=== PATIENT | female | born 1940 | race Caucasian/White ===

== ENCOUNTER 2018-09-22 13:21 | Emergency (ER) | payer MEDICARE ==
[2018-09-22] MEDS ORDERED: NS 0.9% 1000 ML** 1,000 ML IV ONE (13:32)
--- NOTE | 2018-09-22 13:38 | ED ---
GI/ HPI - HPI Summary HPI Summary: Patient is a 78 y/o F presenting to ED with complaints of diarrhea for the past month. She notes that she came to ED four weeks ago and was found to have PNA and a dental infection, was prescribed antibiotics. Patient has been having regular episodes of diarrhea since. She had a negative C.diff test three weeks ago. When diarrhea persisted, PCP prescribed flagyl and rifaximin, with last dosage being two days ago. She was prescribed loperamide two days ago by PCP, patient had minimal improvement with this medication. Diarrhea is described as watery, she notes that her diarrhea was initially colored bright orange but has recently been more brown colored. She denies abdominal pain, N/V but reports intermittent fever and decrease PO intake. On triage, pain is denied, nothing is noted to aggravate/alleviate Sx. Home medications and allergies are reviewed. - History of Current Complaint Time Seen by Provider: 09/22/18 13:25 Stated Complaint: GENERAL ILLNESS PER EMS Hx Obtained From: Patient Onset/Duration: Started Weeks Ago - a month ago, Still Present Timing: Constant, Lasting Weeks - a month ago Current Severity: None - pain denied Associated Signs and Symptoms: Positive: Diarrhea, Fever, Change in Appetite - decreased PO intake, Other: - decreased PO intake. Negative: Nausea, Vomiting, Abdominal Pain Aggravating Factor(s): Nothing Alleviating Factor(s): Nothing - Additional Pertinent History Primary Care Physician: [id number] - Allergy/Home Medications Allergies/Adverse Reactions: Allergies Allergy/AdvReac Type Severity Reaction Status Date / Time shellfish derived Allergy GI Upset Verified 09/22/18 13:31 Sulfa (Sulfonamide Allergy Unknown Verified 09/22/18 13:31 Antibiotics) Reaction Details chocolate flavor AdvReac Nausea Verified 09/22/18 13:31 Home Medications: Home Medications Loperamide CAP* [Imodium CAP*] 2 mg PO .UP TO TID PRN 09/22/18 [History Confirmed 09/22/18] PMH/Surg Hx/FS Hx/Imm Hx Endocrine/Hematology History: Reports: Hx Anemia Denies: Hx Diabetes Cardiovascular History: Reports: Hx Congestive Heart Failure - R/T CHEMOTHERAPY HEART FUNCTION, NO PROBLEMS NOW, Hx Hypertension - ON MEDS, CONTROLLED Denies: Hx Pacemaker/ICD Respiratory History: Denies: Hx Asthma, Hx Chronic Obstructive Pulmonary Disease (COPD) GI History: Reports: Hx Gall Bladder Disease - GALL BLADDER REMOVED, Hx Gastroesophageal Reflux Disease - 1990s:SURGERY, NO Sx SINCE, Hx Hiatal Hernia, Other GI Disorders - FIELDS'S ESOPHAGUS History: Reports: Other Problems/Disorders - RADIATION CYSTITIS R/T UTERINE CANCER Denies: Hx Renal Disease Musculoskeletal History: Reports: Hx Arthritis - OSTEO, Hx Back Problems, Hx Orthopedic Injury, Hx Osteoporosis Sensory History: Reports: Hx Cataracts, Hx Contacts or Glasses, Hx Hearing Problem Denies: Hx Hearing Aid Opthamlomology History: Reports: Hx Cataracts, Hx Contacts or Glasses Neurological History: Reports: Hx Headaches, Hx Nerve Disease - 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EE REPLAC[place]. OTHER KNEE SURGERYS BEFORE REPLACEMENT. HOLDER NEUROMA SURGERIES RT AND LT FOOT, [place] [facility] [place]. [place] [facility] [place] [facility] [place] RIGHT BREAST LUMPECTOMY. JUN 2015 LEFT KNEE REPLACEMENT Hx Anesthesia Reactions: Yes - N/V - Family History Known Family History: Positive: Other - positive: glaucoma - Social History Alcohol Use: Weekly Alcohol Amount: 5 drinks Substance Use Type: Reports: None Smoking Status (MU): Never Smoked Tobacco Have You Smoked in the Last Year: No Review of Systems Positive: Fever - reported intermittent Gastrointestinal: Other - POSITIVE - DECREASED PO INTAKE Positive: Diarrhea. Negative: Abdominal Pain, Vomiting, Nausea All Other Systems Reviewed And Are Negative: Yes Physical Exam - Summary Physical Exam Summary: VITAL SIGNS: Reviewed. GENERAL: Patient is a well-developed and nourished female who is lying comfortable in the stretcher. Patient is not in any acute respiratory distress. HEAD AND FACE: No signs of trauma. No ecchymosis, hematomas or skull depressions. No sinus tenderness. EYES: PERRLA, EOMI x 2, No injected conjunctiva, no nystagmus. EARS: Hearing grossly intact. Ear canals and tympanic membranes are within normal limits. MOUTH: Oropharynx within normal limits. NECK: Supple, trachea is midline, no adenopathy, no JVD, no carotid bruit, no c- spine tenderness, neck with full ROM. CHEST: Symmetric, no tenderness at palpation LUNGS: Clear to auscultation bilaterally. No wheezing or crackles. CVS: Regular rate and rhythm, S1 and S2 present, no murmurs or gallops appreciated. ABDOMEN: Soft, non-tender. No signs of distention. No rebound no guarding, and no masses palpated. Bowel sounds are normal. EXTREMITIES: FROM in all major joints, no edema, no cyanosis or clubbing. NEURO: Alert and oriented x 3. No acute neurological deficits. Speech is normal and follows commands. SKIN: Dry and warm Triage Information Reviewed: Yes Vital Signs On Initial Exam: Initial Vitals Temp Pulse Resp BP Pulse Ox 98.0 F 88 16 182/98 96 09/22/18 13:22 09/22/18 13:22 09/22/18 13:22 09/22/18 13:22 09/22/18 13:22 Vital Signs Reviewed: Yes Diagnostics - Laboratory Result Diagrams: 09/22/18 13:59 09/22/18 13:59 Lab Statement: Any lab studies that have been ordered have been reviewed, and results considered in the medical decision making process. - Radiology abdomen x-ray Radiology Interpretation Completed By: Radiologist Summary of Radiographic Findings: IMPRESSION: NONSPECIFIC BOWEL GAS PATTERN. LARGE AMOUNT OF STOOL THROUGHOUT THE COLON. THIS REPORT WAS REVIEWED BY DR. YEBOAH. Re-Evaluation - Re-Evaluation First Eval Re-Evaluation Time: 15:37 Change: Improved Comment: The patient reports that after hydration she is feeling better therefore she will be discharged home with follow-up with her GI doctor. Patient has upcoming appointment with a GI doctor and she was recommended to keep it. Since the patient is feeling better she will be discharged home with follow-up with PCP and GI. I discussed all the findings and test results with the patient. Patient was instructed to return to the emergency room immediately if any of the symptoms return worsens. Plan of care was discussed with the patient and understands and agrees. All questions were answered at patient satisfaction. There were no further complaints or concerns. Lung exam before discharge: CTA B/L. Good air exchange. No wheezing or crackles heard. CVS: S1 and S2 present. No murmurs appreciated. Patient is alert and oriented x 3. Patient is hemodynamically stable. Patient will be discharged home with follow up PCP in the next 2-3 days GIGU Course/Dx - Course Assessment/Plan: This patient is a 78-year-old female who presents to the emergency room with a chief complaint of having diarrhea for more than a month. The patient has been taking antibiotics and Sx are just getting worse. She denies any abdominal pain, she reports occasionally fever. Blood work without any significant abnormality except potassium level of 3.4. Patient was given potassium chloride, urinalysis is negative for UTI. X-ray of the abdomen shows no acute pathology. In the ED course the patient was given IV fluids. The patient was assessed for couple hours and there was no diarrhea or nausea or vomiting. The patient reports that after hydration she is feeling better therefore she will be discharged home with follow-up with her GI doctor. Patient has upcoming appointment with a GI doctor and she was recommended to keep it. Since the patient is feeling better she will be discharged home with follow-up with PCP and GI. I discussed all the findings and test results with the patient. Patient was instructed to return to the emergency room immediately if any of the symptoms return worsens. Plan of care was discussed with the patient and understands and agrees. All questions were answered at patient satisfaction. There were no further complaints or concerns. Lung exam before discharge: CTA B/L. Good air exchange. No wheezing or crackles heard. CVS: S1 and S2 present. No murmurs appreciated. Patient is alert and oriented x 3. Patient is hemodynamically stable. Patient will be discharged home with follow up PCP in the next 2-3 days - Diagnoses Provider Diagnoses: Diarrhea Discharge - Sign-Out/Discharge Documenting (check all that apply): Patient Departure - DISCHARGE Patient Received Moderate/Deep Sedation with Procedure: No - Discharge Plan Condition: Stable Disposition: HOME Patient Education Materials: Chronic Diarrhea (ED) Referrals: Yusra Stringer MD [Primary Care Provider] - 3 Days Additional Instructions: RETURN TO ED FOR ANY NEW OR WORSENING SYMPTOMS. FOLLOW UP WITH YOUR PRIMARY CARE PHYSICIAN WITHIN THREE DAYS - Billing Disposition and Condition Condition: STABLE Disposition: Home - Attestation Statements Document Initiated by Scribe: Yes Documenting Scribe: JAKUB ARDON Provider For Whom Temoe is Documenting (Include Credential): ROBER YEBOAH MD Scribe Attestation: I, JAKUB ARDON, scribed for ROBER YEBOAH MD on 09/22/18 at 2113. Scribe Documentation Reviewed: Yes Provider Attestation: The documentation as recorded by the scribe, JAKUB ARDON accurately reflects the service I personally performed and the decisions made by me, ROBER YEBOAH MD Status of Scribe Document: Viewed
[2018-09-22 14:08] LABS: ABS Basophils 0 10^3/ul (0-0.2); ABS Eosinophils 0.1 10^3/ul (0-0.6); ABS Lymphocytes 0.6 10^3/ul (1.0-4.8); ABS Monocytes 0.4 10^3/ul (0-0.8); ABS Neutrophils 3.3 10^3/ul (1.5-7.7); ABS Nucleated RBC 0 10^3/ul; Eosinophil % 1.2 %; Hematocrit 36 % (33-41); Lymphocyte % 12.7 %; Mean Corpuscular HGB Conc 33 g/dL (31-36); Mean Corpuscular Hemoglobin 32 pg (27-31); Mean Corpuscular Volume 97 fL (80-97); Mean Platelet Volume 7.5 fL (7.4-10.4); Nucleated Red Blood Cells % 0.1; Platelet Count 215 10^3/uL (150-450); Red Blood Count 3.73 10^6 /uL (3.70-4.87); Red Cell Distribution Width 15 % (10.5-15); White Blood Count 4.3 10^3/uL (3.5-10.8)
[2018-09-22 14:23] LABS: ALT 12 U/L (7-52); AST 20 U/L (13-39); Albumin 3.8 g/dL (3.2-5.2); Albumin/Globulin Ratio 1.7 (1-3); Alkaline Phosphatase 34 U/L (34-104); Anion Gap 8 mmol/L (2-11); BUN/Creatinine Ratio 14.5 (8-20); Blood Urea Nitrogen 9 mg/dL (6-24); C Reactive Protein < 1.00 mg/L (<8.01); CO2 Carbon Dioxide 27 mmol/L (22-32); Calcium 9.3 mg/dL (8.6-10.3); Chloride 109 mmol/L (101-111); EGFR African American 112.9 (>60); EGFR Non-African American 93.3 (>60); Globulin 2.3 g/dL (2-4); Glucose 99 mg/dL (70-100); Potassium 3.4 mmol/L (3.5-5.0); Sodium 144 mmol/L (135-145); Total Protein 6.1 g/dL (6.4-8.9)
[2018-09-22 14:27] LABS: Urine Appearance Clear; Urine Bacteria Absent (Absent); Urine Bilirubin Negative (Negative); Urine Blood 2+ (Negative); Urine Color Straw; Urine Glucose Negative (Negative); Urine Ketones Negative (Negative); Urine Nitrite Negative (Negative); Urine Protein Negative (Negative); Urine Red Blood Cell 2+(6-10/hpf) (Absent); Urine Specific Gravity 1.003 (1.010-1.030); Urine Squamous Epithelial Cell Present (Absent); Urine Urobilinogen Negative (Negative); Urine White Blood Cell Trace(0-5/hpf) (Absent)
[2018-09-22] MEDS ORDERED: Potassium Chlor TAB* 20 MEQ TAB.ER PO ONE (15:02)
[2018-09-22 16:22] VITALS: BP 129/83
== END 2018-09-22 16:21 | disposition home or self-care (01) ==
LOC: ED 13:21
DX: R19.7 Diarrhea, unspecified (principal); I11.0 Hypertensive heart disease with heart failure; I50.9 Heart failure, unspecified; K21.9 Gastro-esophageal reflux disease without esophagitis; D64.9 Anemia, unspecified; G62.9 Polyneuropathy, unspecified; Z79.899 Other long term (current) drug therapy; Z88.2 Allergy status to sulfonamides; Z90.49 Acquired absence of other specified parts of digestive tract; Z85.3 Personal history of malignant neoplasm of breast; Z85.42 Personal history of malignant neoplasm of other parts of uterus; Z92.21 Personal history of antineoplastic chemotherapy
CPT/HCPCS: 36415; 74019; 80053; 81003; 81015; 83605; 83690; 85025; 86140; 87086; 96360; 96361; 99283; A9270-GY

== ENCOUNTER → 2018-12-14 | Emergency (ER) | payer MEDICARE, OTHER ==
[~2018-12-14] MED LIST: NS 0.9% 1000 ML** 1,000 ML IV ONE; Potassium Chlor TAB* 20 MEQ TAB.ER PO ONE
--- NOTE | 2018-12-14 15:19 | ED ---
GI/ HPI - HPI Summary HPI Summary: This patient is a 78 year old F BIBA to ED via EMS with a chief complaint of low back pain since 12/05/18. Patient was seen at primary care on 12/08/18 and dx with a UTI. After four days on medication, patient did not feel better, so she went to urgent care and was placed on Cipro. However, patient reports she is not feeling better and is feeling dehydrated. Patient reports diarrhea in the past two weeks. EMS gave fluids, and she reports feeling better upon arrival. She has not had diarrhea today. Patient has a history of radiation cystitis and c-diff. The patient rates the pain 6/10 in severity. Symptoms aggravated by nothing. Symptoms alleviated by nothing. Patient reports general malaise and abdominal pain. - History of Current Complaint Chief Complaint: EDUrogenitalProblems Time Seen by Provider: 12/14/18 14:46 Stated Complaint: BLADDER INFECTION PER Hx Obtained From: Patient Onset/Duration: Started Weeks Ago - 12/05/18, Still Present Timing: Constant Severity: Moderate Current Severity: Moderate Pain Intensity: 6 Associated Signs and Symptoms: Positive: Back Pain, Diarrhea, Abdominal Pain, Other: - General malaise Aggravating Factor(s): Nothing Alleviating Factor(s): Nothing - Additional Pertinent History Primary Care Physician: [id number] - Allergy/Home Medications Allergies/Adverse Reactions: Allergies Allergy/AdvReac Type Severity Reaction Status Date / Time shellfish derived Allergy GI Upset Verified 10/13/18 11:19 Sulfa (Sulfonamide Allergy Unknown Verified 10/13/18 11:19 Antibiotics) Reaction Details chocolate flavor AdvReac Nausea Verified 10/13/18 11:19 PMH/Surg Hx/FS Hx/Imm Hx Endocrine/Hematology History: Reports: Hx Anemia Denies: Hx Diabetes Cardiovascular History: Reports: Hx Congestive Heart Failure - R/T CHEMOTHERAPY HEART FUNCTION, NO PROBLEMS NOW, Hx Hypertension - ON MEDS, CONTROLLED Denies: Hx Pacemaker/ICD Respiratory History: Denies: Hx Asthma, Hx Chronic Obstructive Pulmonary Disease (COPD) GI History: Reports: Hx Gall Bladder Disease - GALL BLADDER REMOVED, Hx Gastroesophageal Reflux Disease - 1990s:SURGERY, NO Sx SINCE, Hx Hiatal Hernia, Other GI Disorders - FIELDS'S ESOPHAGUS History: Reports: Other Problems/Disorders - RADIATION CYSTITIS R/T UTERINE CANCER Denies: Hx Renal Disease Musculoskeletal History: Reports: Hx Arthritis - OSTEO, Hx Back Problems, Hx Orthopedic Injury, Hx Osteoporosis Sensory History: Reports: Hx Cataracts, Hx Contacts or Glasses, Hx Hearing Problem Denies: Hx Hearing Aid Opthamlomology History: Reports: Hx Cataracts, Hx Contacts or Glasses Neurological History: Reports: Hx Headaches, Hx Nerve Disease - 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 2006 RT KNEE REPLACEMENT [place]. OTHER KNEE SURGERYS BEFORE REPLACEMENT. HOLDER NEUROMA SURGERIES RT AND LT FOOT, HEMORROIDECTOMY [facility] [place]. 2011 UTERINE CA WITH HYSTERECTOMY, [place]. 2005 GALLBLADDER [facility] [place]. 2005 ESPHOGUS REPAIR [facility] [place]. 2014 RIGHT BREAST LUMPECTOMY. JUN 2015 LEFT KNEE REPLACEMENT Hx Anesthesia Reactions: Yes - N/V Infectious Disease History: No Infectious Disease History: Denies: Traveled Outside the [place] in Last 30 Days - Family History Known Family History: Positive: Other - positive: glaucoma - Social History Alcohol Use: Occasionally Alcohol Amount: 5 drinks Hx Substance Use: No Substance Use Type: Reports: None Hx Tobacco Use: No Smoking Status (MU): Never Smoked Tobacco Have You Smoked in the Last Year: No Review of Systems Constitutional: Other - General malaise Positive: Abdominal Pain, Diarrhea Musculoskeletal: Other - Back pain All Other Systems Reviewed And Are Negative: Yes Physical Exam - Summary Physical Exam Summary: GENERAL: Patient is a well-developed and nourished F who is lying comfortable in the stretcher. Patient is not in any acute respiratory distress. HEAD AND FACE: Normocephalic EYES: PERRLA, EOMI x 2. EARS: Hearing grossly intact. MOUTH: Oropharynx within normal limits. NECK: Supple, trachea is midline, no adenopathy, no JVD, no carotid bruit. CHEST: Symmetric, no tenderness at palpation LUNGS: Clear to auscultation bilaterally. No wheezing or crackles. CVS: Regular rate and rhythm, S1 and S2 present, no murmurs or gallops appreciated. ABDOMEN: Soft, non-tender. Bowel sounds are normal. No abnormal abdominal pulsations. EXTREMITIES: Full ROM in all major joints, no edema, no cyanosis or clubbing. NEURO: Alert and oriented x 3. No acute neurological deficits. Speech is normal and follows commands. SKIN: Dry and warm Triage Information Reviewed: Yes Vital Signs On Initial Exam: Initial Vitals Temp Pulse Resp BP Pulse Ox 99.1 F 83 16 149/92 94 12/14/18 14:41 12/14/18 14:41 12/14/18 14:41 12/14/18 14:41 12/14/18 14:41 Vital Signs Reviewed: Yes Diagnostics - Vital Signs Vital Signs Temp Pulse Resp BP Pulse Ox 12/14/18 14:41 99.1 F 83 16 149/92 94 - Laboratory Result Diagrams: 12/14/18 16:39 12/14/18 16:39 Lab Statement: Any lab studies that have been ordered have been reviewed, and results considered in the medical decision making process. - Radiology CXR Radiology Interpretation Completed By: Radiologist Summary of Radiographic Findings: NO ACTIVE CARDIOPULMONARY DISEASE IS NOTED. CHRONICALLY ELEVATED LEFT HEMIDIAPHRAGM. Dr. Cai has reviewed this radiology report. - EKG 1529 Cardiac Rate: NL - 81 BPM EKG Comparison: Other - Previous EKG did not have ectopic rhythm Summary of EKG Findings: Ectopic atrial rhythm 81 BPM, normal axis, different compared to previous EKG taken 08/22/18 in that previous did not have an ectopic rhythm. Re-Evaluation - Re-Evaluation First Eval Re-Evaluation Time: 17:50 Change: Improved Comment: With fluids patient feels much better. Patient will be discharged. Pt agrees and understands this plan. GIGU Course/Dx - Course Course Of Treatment: This patient is a 78 year old F BIBA to ED via EMS with a chief complaint of low back pain since 12/05/18 and UTI diagnosis since 12/08/18. In the ED course, patient received fluids. Blood work and UA obtained. EKG taken 1529 revealed ectopic atrial rhythm 81 BPM, normal axis, different compared to previous EKG taken 08/22/18 in that previous did not have an ectopic rhythm. CXR revealed NO ACTIVE CARDIOPULMONARY DISEASE IS NOTED. CHRONICALLY ELEVATED LEFT HEMIDIAPHRAGM. I discussed results with patient, and she reports feeling better. She is hemodynamically stable and safe for discharge. Strict return precautions given and she will otherwise follow up with her PCP. PAtient will be discharegd home with dx of malaise and dehydration. - Diagnoses Provider Diagnoses: Malaise, Dehydration Discharge - Sign-Out/Discharge Documenting (check all that apply): Patient Departure - Discharge Patient Received Moderate/Deep Sedation with Procedure: No - Discharge Plan Condition: Stable Disposition: HOME Patient Education Materials: Dehydration (ED), Fatigue (ED) Referrals: Yusra Stringer MD [Primary Care Provider] - Additional Instructions: Follow up with your primary care physician in 1-3 days. RETURN TO THE EMERGENCY DEPARTMENT FOR CHANGING OR WORSENING SYMPTOMS. - Billing Disposition and Condition Condition: STABLE Disposition: Home - Attestation Statements Document Initiated by Ashley: Yes Documenting Scribe: Henrik Willams Provider For Whom Ashley is Documenting (Include Credential): Julia Cai MD Scribe Attestation: Henrik Conti, scribed for Julia Cai MD on 12/16/18 at 0750. Scribe Documentation Reviewed: Yes Provider Attestation: The documentation as recorded by the Henrik hugo accurately reflects the service I personally performed and the decisions made by me, Julia Cai MD Status of Scribe Document: Viewed
[2018-12-14 15:38] LABS: Urine Appearance Cloudy; Urine Bacteria 1+ (Absent); Urine Bilirubin Negative (Negative); Urine Blood 1+ (Negative); Urine Color Yellow; Urine Glucose Negative (Negative); Urine Ketones Trace (Negative); Urine Nitrite Negative (Negative); Urine Protein Negative (Negative); Urine Red Blood Cell 2+(6-10/hpf) (Absent); Urine Specific Gravity 1.009 (1.010-1.030); Urine Squamous Epithelial Cell Present (Absent); Urine Urobilinogen Negative (Negative); Urine White Blood Cell Trace(0-5/hpf) (Absent)
[2018-12-14 16:48] LABS: ABS Lymphocytes 0.7 10^3/ul (1.0-4.8); ABS Monocytes 0.7 10^3/ul (0-0.8); ABS Neutrophils 7.8 10^3/ul (1.5-7.7); Eosinophil % 0.3 %; Hematocrit 40 % (35-47); Hemoglobin 13.1 g/dL (12.0-16.0); Lymphocyte % 7.7 %; Mean Corpuscular HGB Conc 33 g/dL (31-36); Mean Corpuscular Hemoglobin 32 pg (27-31); Mean Corpuscular Volume 97 fL (80-97); Mean Platelet Volume 7.3 fL (7.4-10.4); Platelet Count 249 10^3/uL (150-450); Red Blood Count 4.08 10^6 /uL (3.70-4.87); Red Cell Distribution Width 15 % (10-15); White Blood Count 9.2 10^3/uL (3.5-10.8)
[2018-12-14 16:59] LABS: Activated Partial Thrombo Time 27.7 seconds (26.0-38.0); INR 1.11 (0.82-1.09)
[2018-12-14 17:05] LABS: Albumin 3.6 g/dL (3.2-5.2); Albumin/Globulin Ratio 1.5 (1-3); BUN/Creatinine Ratio 17.2 (8-20); EGFR African American 108.9 (>60); Globulin 2.4 g/dL (2-4); Magnesium 1.5 mg/dL (1.9-2.7); Potassium 3.4 mmol/L (3.5-5.0); Total Bilirubin 0.3 mg/dL (0.2-1.0)
[2018-12-14 18:16] VITALS: BP 160/80
== END | disposition home or self-care (01) ==
LOC: ED 14:38
DX: R53.81 Other malaise (principal); E86.0 Dehydration; Z88.2 Allergy status to sulfonamides; I11.0 Hypertensive heart disease with heart failure; D64.9 Anemia, unspecified; I50.9 Heart failure, unspecified; Z79.899 Other long term (current) drug therapy
CPT/HCPCS: 36415; 71045; 80053; 81003; 81015; 83605; 83735; 83880; 84484; 85025; 85610; 85730; 87086; 93005; 96360; 96361; 99284; A9270-GY

== ENCOUNTER 2018-12-15 08:53 | Emergency (ER) | payer MEDICARE, OTHER ==
--- NOTE | 2018-12-15 09:41 | ED ---
GI/ HPI - HPI Summary HPI Summary: This pt is a 78 y/o female presenting to [facility] c/o decreased PO intake and dehydration for the past 3 weeks. Pt was seen in the ED yesterday for the same complaint and was given fluids then discharged home. Per yesterday's note pt was see at her PCP's office on 12/08/18 and was diagnosed with a UTI. She had 4 days of medications but pt did not feel better and went to Urgent Care where she was placed on Ciprofloxacin. Pt presents today with no improvement. At 04: 00 today pt reports she was awake, unable to sleep and felt like she "took a big step backwards." She reports nausea and vomiting, back pain, dehydration, decreased PO intake. Pt notes she took a dose of Cipro today but vomited it. reports pt has had recent weight loss secondary to decreased PO intake. Pt denies fever or diarrhea. Although she notes her symptoms at first began with diarrhea but has resolved. PMHx of radiation cystitis and C. diff (July 2018) - History of Current Complaint Chief Complaint: EDWeakness Time Seen by Provider: 12/15/18 09:22 Stated Complaint: FEELS SICK PER PT Hx Obtained From: Patient Onset/Duration: Started Days Ago, Still Present Timing: Lasting Days Current Severity: Moderate Pain Intensity: 8 Location of Pain: Other - bilateral back pain Associated Signs and Symptoms: Positive: Back Pain, Nausea, Vomiting, Weight Loss, Other: - POSITIVE: dehydration, decreased PO intake. Negative: Diarrhea, Fever, Chills Aggravating Factor(s): Nothing Alleviating Factor(s): Nothing - Additional Pertinent History Primary Care Physician: ATA - Allergy/Home Medications Allergies/Adverse Reactions: Allergies Allergy/AdvReac Type Severity Reaction Status Date / Time shellfish derived Allergy GI Upset Verified 10/13/18 11:19 Sulfa (Sulfonamide Allergy Unknown Verified 10/13/18 11:19 Antibiotics) Reaction Details chocolate flavor AdvReac Nausea Verified 10/13/18 11:19 Home Medications: Home Medications Calcium Carbonate/Vitamin D3 [Calcium 600 + Vit D Tablet] 1 tab PO DAILY [History Confirmed 12/15/18] Ciprofloxacin TAB* [Cipro 500 MG TAB*] 500 mg PO BID 12/15/18 [History Confirmed 12/15/18] Cyclobenzaprine TAB* [Flexeril 10 MG TAB*] 10 mg PO TID PRN 12/15/18 [History Confirmed 12/15/18] Magnesium Oxide TAB* [MagOx 400 TAB*] 400 mg PO DAILY 12/15/18 [History Confirmed 12/15/18] metroNIDAZOLE * [Flagyl] 500 mg PO TID 12/15/18 [History Confirmed 12/15/18] PMH/Surg Hx/FS Hx/Imm Hx Endocrine/Hematology History: Reports: Hx Anemia Denies: Hx Diabetes Cardiovascular History: Reports: Hx Congestive Heart Failure - R/T CHEMOTHERAPY HEART FUNCTION, NO PROBLEMS NOW, Hx Hypertension - ON MEDS, CONTROLLED Denies: Hx Pacemaker/ICD Respiratory History: Denies: Hx Asthma, Hx Chronic Obstructive Pulmonary Disease (COPD) GI History: Reports: Hx Gall Bladder Disease - GALL BLADDER REMOVED, Hx Gastroesophageal Reflux Disease - 1990s:SURGERY, NO Sx SINCE, Hx Hiatal Hernia, Other GI Disorders - FIELDS'S ESOPHAGUS History: Reports: Other Problems/Disorders - RADIATION CYSTITIS R/T UTERINE CANCER Denies: Hx Renal Disease Musculoskeletal History: Reports: Hx Arthritis - OSTEO, Hx Back Problems, Hx Orthopedic Injury, Hx Osteoporosis Sensory History: Reports: Hx Cataracts, Hx Contacts or Glasses, Hx Hearing Problem Denies: Hx Hearing Aid Opthamlomology History: Reports: Hx Cataracts, Hx Contacts or Glasses Neurological History: Reports: Hx Headaches, Hx Nerve Disease - 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 2006 RT KNEE REPLACEMENT [place]. 3 OTHER KNEE SURGERYS BEFORE REPLACEMENT. HOLDER NEUROMA SURGERIES RT AND LT FOOT, HEMORROIDECTOMY [facility]. 2011 UTERINE CA WITH HYSTERECTOMY, [place]. 2005 GALLBLADDER [facility]. 2005 ESPHOGUS REPAIR [facility]. 2014 RIGHT BREAST LUMPECTOMY. JUN 2015 LEFT KNEE REPLACEMENT Hx Anesthesia Reactions: Yes - N/V Infectious Disease History: No Infectious Disease History: Denies: Traveled Outside the [place] in Last 30 Days - Family History Known Family History: Positive: Other - positive: glaucoma - Social History Alcohol Use: Occasionally Alcohol Amount: 5 drinks Hx Substance Use: No Substance Use Type: Reports: None Hx Tobacco Use: No Smoking Status (MU): Never Smoked Tobacco Have You Smoked in the Last Year: No Review of Systems Constitutional: Other - POSITIVE: decreased PO intake, dehydration, weight loss Negative: Fever Positive: Vomiting, Nausea. Negative: Diarrhea Musculoskeletal: Other - POSITIVE: back pain All Other Systems Reviewed And Are Negative: Yes Physical Exam - Summary Physical Exam Summary: Constitutional: Well-developed, Well-nourished, Alert. (-) Distressed Skin: Warm, Dry HENT: Normocephalic; Atraumatic Eyes: Conjunctiva normal Neck: Musculoskeletal ROM normal neck. (-) JVD, (-) Stridor, (-) Tracheal deviation Cardio: Rhythm regular, rate normal, Heart sounds normal; Intact distal pulses; The pedal pulses are 2+ and symmetric. Radial pulses are 2+ and symmetric. (-) Murmur Pulmonary/Chest wall: Effort normal. (-) Respiratory distress, (-) Wheezes, (-) Rales Abd: Soft, (-) tenderness, (-) Distension, (-) Guarding, (-) Rebound Musculoskeletal: (-) Edema. Bilateral tenderness at the sacroiliac joints. Lymph: (-) Cervical adenopathy Neuro: Alert, Oriented x3 Psych: Mood and affect Normal Triage Information Reviewed: Yes Vital Signs On Initial Exam: Initial Vitals Temp Pulse Resp BP Pulse Ox 98.1 F 83 16 148/87 96 12/15/18 08:56 12/15/18 08:56 12/15/18 08:56 12/15/18 08:56 12/15/18 08:56 Vital Signs Reviewed: Yes Diagnostics - Vital Signs Vital Signs Temp Pulse Resp BP Pulse Ox 12/15/18 08:56 98.1 F 83 16 148/87 96 - Laboratory Result Diagrams: 12/15/18 10:05 12/15/18 10:05 Lab Statement: Any lab studies that have been ordered have been reviewed, and results considered in the medical decision making process. - Radiology Chest XR Radiology Interpretation Completed By: Radiologist Summary of Radiographic Findings: IMPRESSION: No active cardiopulmonary disease is noted. Elevated left hemidiaphragm without change or infiltrate. Dr. Connelly has reviewed this report. - EKG 11:13 Cardiac Rate: NL - at 72 bpm EKG Rhythm: Sinus Rhythm Summary of EKG Findings: Normal axis, normal MD, normal QRS, normal QTc. Normal ST. Nonspecific EKG. Re-Evaluation - Re-Evaluation First Eval Re-Evaluation Time: 13:33 Change: Unchanged Comment: Pt with nausea. Will give ciprofloxacin and Zofran. Second Eval Re-Evaluation Time: 15:42 Change: Improved Comment: Pt is feeling a lot better. She tolerated her orals and her meds. GIGU Course/Dx - Course Assessment/Plan: Pt is a 78 y/o female presenting to [facility] c/o decreased PO intake and dehydration for the past 3 weeks. Pt on Cipro for UTI but presents today with no improvement. She reports nausea and vomiting, back pain, dehydration, decreased PO intake. reports pt has had recent weight loss secondary to decreased PO intake. Test results unremarkable except for calcium of 7.6, total protein of 5.7. Urinalysis shows specific gravity 1.009, 1+ ketones, 1+ blood, 1+ RBC, present squamous epithelial cells, 1+ bacteria. Chest XR shows no active cardiopulmonary disease is noted. Elevated left hemidiaphragm without change or infiltrate. In the ED course the pt was given IV fluids, Tylenol, Ciprofloxacin, Zofran. After these medications the pt is feeling better. She will be discharged home with follow up from her PCP and orthopedics. Pt was given a prescription for Zofran. - Diagnoses Provider Diagnoses: Nausea and vomiting, Dehydration, UTI (urinary tract infection), Sacroiliitis Discharge - Sign-Out/Discharge Documenting (check all that apply): Patient Departure - Discharge home Patient Received Moderate/Deep Sedation with Procedure: No - Discharge Plan Condition: Stable Disposition: HOME Prescriptions: Ondansetron ODT TAB* [Zofran 4 MG Odt TAB*] 4 mg PO Q6H PRN #15 tab.odt PRN Reason: Nausea Patient Education Materials: Urinary Tract Infection in Women (ED), Acute Nausea and Vomiting (ED), Sacroiliitis (ED) Print Language: BRUNEIAN Referrals: Yusra Stringer MD [Primary Care Provider] - Master Bell MD [Medical Doctor] - - Billing Disposition and Condition Condition: STABLE Disposition: Home - Attestation Statements Document Initiated by Ashley: Yes Documenting Scribe: Stacy Terry Provider For Whom Scribe is Documenting (Include Credential): Kaila Freeman MD Scribe Attestation: I, Stacy Terry, scribed for Kaila Nails MD on 12/15/18 at 1919. Scribe Documentation Reviewed: Yes Provider Attestation: The documentation as recorded by the farrahibeStacy accurately reflects the service I personally performed and the decisions made by me, Kaila Nails MD Status of Scribe Document: Viewed
[2018-12-15 10:20] LABS: ABS Lymphocytes 0.6 10^3/ul (1.0-4.8); ABS Monocytes 0.5 10^3/ul (0-0.8); ABS Neutrophils 5.6 10^3/ul (1.5-7.7); Eosinophil % 0.5 %; Hematocrit 38 % (35-47); Lymphocyte % 8.4 %; Mean Corpuscular HGB Conc 34 g/dL (31-36); Mean Corpuscular Hemoglobin 33 pg (27-31); Mean Corpuscular Volume 97 fL (80-97); Mean Platelet Volume 7.2 fL (7.4-10.4); Nucleated Red Blood Cells % 0.1; Platelet Count 216 10^3/uL (150-450); Red Blood Count 3.92 10^6 /uL (3.70-4.87); Red Cell Distribution Width 15 % (10-15); White Blood Count 6.7 10^3/uL (3.5-10.8)
[2018-12-15 10:28] LABS: Activated Partial Thrombo Time 27.8 seconds (26.0-38.0); INR 1.16 (0.82-1.09)
[2018-12-15 10:47] LABS: Albumin 3.6 g/dL (3.2-5.2); Albumin/Globulin Ratio 1.7 (1-3); BUN/Creatinine Ratio 11.3 (8-20); Calcium 7.6 mg/dL (8.6-10.3); EGFR African American 112.9 (>60); EGFR Non-African American 93.3 (>60); Globulin 2.1 g/dL (2-4); Potassium 3.6 mmol/L (3.5-5.0); Total Bilirubin 0.3 mg/dL (0.2-1.0); Total Protein 5.7 g/dL (6.4-8.9)
[2018-12-15 10:52] LABS: Urine Appearance Cloudy; Urine Bacteria 1+ (Absent); Urine Bilirubin Negative (Negative); Urine Blood 1+ (Negative); Urine Color Yellow; Urine Glucose Negative (Negative); Urine Ketones 1+ (Negative); Urine Nitrite Negative (Negative); Urine Protein Negative (Negative); Urine Red Blood Cell 1+(3-5/hpf) (Absent); Urine Specific Gravity 1.009 (1.010-1.030); Urine Squamous Epithelial Cell Present (Absent); Urine Urobilinogen Negative (Negative); Urine White Blood Cell Absent (Absent)
[2018-12-15] MEDS ORDERED: NS 0.9% 1000 ML** 1,000 ML IV ONE (11:47)
[2018-12-15] MEDS ORDERED: Acetaminophen TAB* 325 MG PO ONE (11:48)
[2018-12-15] MEDS ORDERED: Ondansetron ODT TAB* 4 MG PO ONE (13:33)
[2018-12-15] MEDS ORDERED: Ciprofloxacin TAB* 250 MG PO ONE (13:33)
[2018-12-15 15:46] VITALS: BP 124/72
== END 2018-12-15 15:51 | disposition home or self-care (01) ==
LOC: ED 08:53
DX: E86.0 Dehydration (principal); R11.2 Nausea with vomiting, unspecified; N39.0 Urinary tract infection, site not specified; M46.1 Sacroiliitis, not elsewhere classified; D64.9 Anemia, unspecified; I50.9 Heart failure, unspecified; I10 Essential (primary) hypertension; K21.9 Gastro-esophageal reflux disease without esophagitis; Z88.2 Allergy status to sulfonamides; Z79.899 Other long term (current) drug therapy
CPT/HCPCS: 36415; 71045; 80053; 81003; 83605; 84484; 85025; 85610; 85730; 87040; 93005; 96360; 99282; A9270-GY

== ENCOUNTER 2019-01-29 09:40 | Emergency (ER) | payer MEDICARE, OTHER ==
--- OUTSIDE RECORDS SUMMARY | 2019-01-29 09:54 | XMS REPORT | Continuity of Care Document ---
:1940 External Reference #:[id number] Author Name Yusra De Leon MD Address [address] [place] [address] Care Team Providers Name Role Phone Jc Ball M.D. Care Team Information Jig And Fixture Builder Apprentice [phone] Gregg Dyer MD - Urology Care Team Information Jig And Fixture Builder Apprentice [phone] Care Team Information Jig And Fixture Builder Apprentice [phone] Problems Active Problems Provider Date Pure hypercholesterolemia Yusra De Leon MD Onset: 04/24/2005 Benign essential hypertension Yusra De Leon MD Onset: 04/24/2005 Actinic reticuloid Yusra De Leon MD Onset: 04/24/2005 Peptic reflux disease Yusra De Leon MD Onset: 04/24/2005 Note: S/P Cecilia! Vitamin D deficiency Yusra De Leon MD Onset: 08/01/2010 Malignant neoplasm of female breast Lata Stern MD Onset: 01/06/2015 History of malignant neoplasm of uterine body Lata Stern MD Onset: 01/06 Osteoporosis Lata Stern MD Onset: 01/06/2015 Diverticulum of bladder Lata Stern MD Onset: 01/06/2015 Idiopathic peripheral neuropathy Lata Stern MD Onset: 01/07/2015 Edema Lata Stern MD Onset: 01/07/2015 Localized, primary osteoarthritis Lata Stern MD Onset: 01/07/2015 Mixed hyperlipidemia Yusra De Leon MD Onset: 03/08/2017 Essential hypertension Yusra De Leon MD Onset: 07/01/2015 Social History Type Date Description Comments Sex Unknown Tobacco Use Start: Unknown Never Smoked Cigarettes Tobacco Use Start: Unknown Patient has never smoked Smoking Status Reviewed: 01/19/19 Patient has never smoked Allergies, Adverse Reactions, Alerts Active Allergies Reaction Severity Comments Date Sulfa 09/04/2004 Medications Active Medications SIG Qnty Indications Ordering Date Provider Ondansetron HCL take 1 tablet by 30tabs R11.0 [facility], 12/22/2018 4mg mouth every 8 Yusra Barragan MD Tablets hours as needed for nausea/vomiting. Loperamide HCL 2 po with 1st 45tabs R19.7 [facility], 09/17/2018 2mg loose BM and then Yusra Barragan MD Tablets 1 po up to 3 per day if continued. Prolia inject 1 1units M81.0 [facility], 08/01/2018 60mg/ml Solution milliliters every Yusra Barragan MD 6 months Calcium 600 1 by mouth every M81.0 [facility], 08/01/2018 600mg Tablets day Yusra Barragan MD Diclofenac Sodium apply 1 gram per 100gm M25.512 [facility], 05/24/2017 1% Gel joint four times a Yusra Barragan MD day as needed for pain Proair Respiclick Inhale 2 Puffs By 1units R06.2 [facility], 03/08/2017 Mouth Four Times Yusra Barragan MD 108(90Base) mcg/Act Daily as Needed Aerosol Magnesium Oxide 1 by mouth every 30tabs G47.62 [facility], 12/04/2016 400mg night at bedtime Yusra Barragan MD Tablets Gabapentin take 1 tablet by 90tabs G60.9 [facility], 09/14/2016 800mg Tablets mouth three times Yusra Barragan MD a day Ibuprofen take one tablet by 60tabs M54.5 [facility], 09/07/2016 600mg Tablets mouth three times Yusra Barragan MD daily as needed Myrbetriq 1 by mouth every 90tabs R39.15 [facility], 07/10/2016 50mg Tablets ER day Yusra Barragan MD 24HR Rosuvastatin Calcium take 1 tablet by 30tabs E78.2 [facility], 07/10/2016 10mg mouth once daily Yusra Barragan MD Tablets Irbesartan take 1 tablet by 30tabs I10 [facility], 02/04/2015 300mg Tablets mouth once daily Yusra Barragan MD Tamoxifen Citrate 1 by mouth every C50.411 Lata Stern, 10/14/2014 20mg day Tablets Hydrocodone-Acetaminop 1 by mouth four 120tabs M54.5 [facility], 02/22/2014 hen times a day as Yusra Barragan MD 5-325mg Tablets needed Vitamin D 1 po qd E55.9 [facility], 09/24/2011 2000Unit Yusra Barragan MD Capsules Cyclobenzaprine HCL take 1 tablet by 90tabs M54.5 [facility], 05/23/2010 10mg mouth three times Yusra Barragan MD Tablets a day if needed Lansoprazole Take 1 Capsule By 30caps K22.70 Gagan Valdes, 08/22/2009 30mg Mouth Once Daily PA Capsules DR History Medications Methylprednisolone as dir 21units M46.1 [facility], 12/22/2018 - 4mg TBPK Yusra Barragan MD 01/19/2019 Cipro 1 by mouth two 20tabs N39.0 [facility], 12/12/2018 - 500mg Tablets times a day Yusra Barragan MD 12/22/2018 Metronidazole 1 by mouth three 30tabs N39.0 [facility], 12/12/2018 - 500mg Tablets times a day for Yusra Barragan MD 12/22/2018 10days -- no alcohol Nitrofurantoin Monohyd 1 by mouth twice 20caps N39.0 [facility], 12/08/2018 - Macro a day Yusra Barragan MD 12/12/2018 100mg Capsules Xifaxan 1 by mouth three 42tabs R19.7 [facility], 09/04/2018 - 550mg Tablets times a day for Yusra Barragan MD 09/18/2018 total of 14days with a probiotic Metronidazole 1 by mouth three 42tabs R19.7 [facility], 09/04/2018 - 500mg Tablets times a day for Yusra Barragan MD 09/18/2018 14days Acidophilus/L-Sporogenes x 10 d J15.9 [facility], 09/01/2018 - Extra Strength Yusra Barragan MD 09/26/2018 Tablets Medications Administered in Office Medication SIG Qnty Indications Ordering Provider Date Prolia 60 mg/ml Nurses Schedule Kimi 08/08/2018 Injection PPD Yusra De Leon MD 10/26/2003 Injection Depo Medrol 40 MG Yusra De Leon MD 10/04/2003 Injection PPD Yusra De Leon MD 09/18/2002 Injection Torodol Injection 15 MG Dose Yusra De Leon MD 07/24/2002 Injection Immunizations CPT Code Status Date Vaccine Lot # [id number] Given 04/26/2018 Shingrix (Shingles) Zoster Vaccine HZV, Recombinant, Subunit, Adj 20389 Given 03/17/2018 Influenza Vac, Quadrivalent, Split, 0.5mL Dosage, [id number] Im Use 61119 Given 03/08/2017 Fluzone Highdose Age 65 And Over Preservative & [id number] Antibiotic Free 15636 Given 03/06/2016 Fluzone Highdose Age 65 And Over Preservative & [id number] Antibiotic Free 22696 Given 03/11/2015 Influenza Vac, Quadrivalent, Split, 0.5mL Dosage, [id number] Im Use 87401 Given 03/11/2015 Prevnar 13 Pneumococal Conjugate Vaccine [id number] 93501 Given 03/25/2014 Influenza Vac, Quadrivalent, Split, 0.5mL Dosage, [id number] Im Use Q2038 Given 02/24/2013 Fluzone Trivalent Immunization [id number] Q2038 Given 03/04/2012 Fluzone Trivalent Immunization [id number] 89194 Given 09/24/2011 Pneumococcal 23 Immunization Adult [place] [id number] Immunosuppressed Patient 67578 Given 09/24/2011 Tdap (Adacel) Ages 7 And Above Only [id number] Q2038 Given 03/08/2011 Fluzone Trivalent Immunization [id number] 35794 Given 04/07/2010 Afluria Or Fluvirin Flu Vac Intramuscular [id number] 30909 Given 03/24/2009 Afluria Or Fluvirin Flu Vac Intramuscular [id number] 67751 Given 03/24/2008 Afluria Or Fluvirin Flu Vac Intramuscular [id number] 81397 Given 03/24/2008 Afluria Or Fluvirin Flu Vac Intramuscular [id number] 57039 Given 03/31/2007 Zoster (Zostavax) [id number] 74915 Given 03/31/2007 Afluria Or Fluvirin Flu Vac Intramuscular [id number] 63204 Given 08/09/2006 Tetanus And Diptheria Toxoids For Adult TD-165 Use-preservative free 27234 Given 05/07/2006 Afluria Or Fluvirin Flu Vac Intramuscular [id number] 12249 Given 03/13/2005 Afluria Or Fluvirin Flu Vac Intramuscular [id number] 07953 Given 03/03/2004 Afluria Or Fluvirin Flu Vac Intramuscular 43041 Given 02/26/2003 Afluria Or Fluvirin Flu Vac Intramuscular 04360 Given 03/26/2002 Afluria Or Fluvirin Flu Vac Intramuscular Vital Signs Date Vital Result Comment 01/19/2019 4:28pm Weight 140.00 lb Heart Rate 96 /min BP Systolic 126 mmHg BP Diastolic 68 mmHg Height 61.5 inches 5'1.50" BMI (Body Mass Index) 26.0 kg/m2 12/22/2018 2:47pm Body Temperature 99.1 F Weight 141.00 lb Heart Rate 120 /min BP Systolic 114 mmHg BP Diastolic 60 mmHg Height 61.5 inches 5'1.50" BMI (Body Mass Index) 26.2 kg/m2 Results Test Date Facility Test Result H/L Range Note Drugs Of 12/23/2018 [facility] Amphetamines,Uri NEGATIVE <1000 ng/mL Abuse,Urine-[facility] ne Barbiturates,Urine NEGATIVE <200 ng/mL Benzodiazepines, Urine NEGATIVE <200 ng/mL Bupernorphrine/Norbu,Urine NEGATIVE <10 ng/mL Cocaine Metabolites,Urine NEGATIVE <300 ng/mL Methadone,Urine NEGATIVE <300 ng/mL Opiates,Urine POSITIVE Abnormal <300 ng/mL Oxycodone,Urine NEGATIVE <100 ng/mL Phencyclidine,Urine NEGATIVE <25 ng/mL Cannabinoids,Urine NEGATIVE <50 ng/mL Laboratory test 12/23/2018 [facility] Urine Culture Microbiology res 1 finding <SEE NOTE> Laboratory test 12/08/2018 [facility] Urine Culture Microbiology res Abnormal 2 finding <SEE NOTE> Stool Panel 09/05/2018 [facility] Enteric SEE NOTE 3 Pathogens By PCR Lactoferrin,Fecal NEGATIVE (Neg) 4 C Diff Toxin B/PCR-RL 09/05/2018 [facility] Specimen Description STOOL Comment SPECIMEN REJECTE <SEE NOTE> 5 Ova and Parasite Basic-RL 09/05/2018 [facility] Oap Wet Mount Negative 6 Oap Trichrome Stain Negative 7 C Diff Toxin B/PCR-RL 09/02/2018 [facility] Specimen Description STOOL C Diff Toxin B NEGATIVE (Neg) 027 Nap1 B1 NEGATIVE (Neg) Comment NOTE: IF REFLEX <SEE NOTE> 8 Basic (BMP) 08/01/2018 [facility] Sodium 142 mmol/L 135-146 9, 10 Potassium 4.5 mmol/L 3.5-5.2 Chloride# 105 mmol/L 97-110 11 Carbon Dioxide 32 mmol/L 24-34 Glucose 93 mg/dL 70-105 BUN 14 mg/dL 6-26 Creatinine 0.7 mg/dL 0.5-1.4 Calcium 9.5 mg/dL 8.5-10.2 Non Shilpa Egfr >60 >60 12 Shilpa Egfr >60 >60 13 Anion Gap 5 mmol/L 5-15 14 Lipid Treatment 08/01/2018 [facility] Cholesterol 154 mg/dL 50-199 Triglycerides 107 mg/dL 30-200 HDL 65 mg/dL 35-85 15 Chol/ HDL Ratio 2.4 ratio Low 3.7-5.6 VLDL 21 mg/dL 2-29 LDL (Calc) 68 mg/dL 20-99 16 Alt 14 U/L 3-42 Ast 21 U/L 8-42 Laboratory test finding 08/01/2018 [facility] Vitamin D 25 Hydroxy 44 ng/mL 30-100 17 1 Microbiology results SOURCE Clean Catch Midstream FINAL RESULT No growth 2 Microbiology results SOURCE Clean Catch Midstream COLONY COUNT >100,000 CFU/ML PRELIMINARY RESULT Gram Negative Gwyn. ID & Sensitivity to Follow. 12/09/2018 2:50 PM FINAL RESULT Klebsiella pneumoniae (Isolate 1) Sensitivity Analysis Isolate 1 --------- AMIKACIN <=16 S AMOXICILLIN/CLAVULANATE <=8/4 S AMPICILLIN 16 R* AMPICILLIN/SULBACTAM <=8/4 S CEFAZOLIN <=2 S CEFEPIME <=8 S CEFOTAXIME <=2 S CEFTRIAXONE <=1 S CEFUROXIME <=4 S CIPROFLOXACIN <=1 S ERTAPENEM <=0.5 S GENTAMYCIN <=2 S IMIPENEM <=1 S LEVOFLOXACIN <=2 S NITROFURANTOIN <=32 S PIPERACILLIN/TAZOBACTAM <=16 S TETRACYCLINE <=4 S TOBRAMYCIN <=4 S TRIMETHOPRIM/SULFAMETHOXAZ <=2/38 S S=Sensitive;I=Indeterminate;R=Resistant 3 SPECIMEN DESCRIPTION STOOL SPECIAL REQUESTS NONE RESULT NEGATIVE FOR ENTERIC PATHOGENS BY PCR. NOTE: THIS MOLECULAR ASSAY DETECTS THE FOLLOWING ENTERIC PATHOGENS: CAMPYLOBACTER GROUP (COLI, JEJUNI, MELQUIADES), SALMONELLA SPECIES, SHIGELLA SPECIES (DYSENTERIAE, BOYDII, SONNEI, FLEXNERI), VIBRIO GROUP (CHOLERAE, PARAHAEMOLYTICUS), YERSINIA ENTEROCOLITICA, SHIGA TOXIN 1, SHIGA TOXIN 2, NOROVIRUS GROUP 1 AND 2, ROTAVIRUS A. REPORT STATUS FINAL 09/06/2018 Unless otherwise specified, testing performed by [facility] [place] [address] [address] PERFORMED AT [address] [place] [address] Unless otherwise specified, testing performed by [facility] [place] [address] 5 SPECIMEN REJECTED: ONLY ONE SPECIMEN WILL BE TESTED PER 7 DAY TIME PERIOD. Unless otherwise specified, testing performed by [facility] [place] [address] 6 Negative Reference range: Negative 7 Negative Reference range: Negative TEST INFORMATION: Ova and Parasite Exam, Fecal (Immunocompromised or Travel History) Method for identification of Ova and Parasites includes wet mount and trichromes stain. Due to the various shedding cycles of many parasites, three separate stool specimens collected over a 5-7-day period are recommended for ova and parasite examination. A single negative result does not rule out the possibility of a parasitic infection. Stool antigen testing is the optimal test method for determining the parasitic presence of Giardia, Cryptosporidium spp, or Entamoeba histolytica. The ova and parasite exam does not specifically detect Cryptosporidium, Cyclospora, Cystoisospora, and Microsporidia. For Cryptosporidium, refer to Cryptosporidium Antigen by EIA ([employer] test code 7846947). For Cyclospora and Cystoisospora, refer to Parasitology Stain by Modified Acid-Fast ([employer] test code 2385776). For Microsporidia, refer to Microsporidia Stain ([employer] test code 1292712). Performed by [facility], [address] [place] [id number] [email or web address], Viet Richardson MD, Lab. Director Unless otherwise specified, testing performed by [facility] [place] [address] 8 NOTE: IF REFLEX CULTURE FOR KLEBSIELLA OXYTOCA IS CLINICALLY INDICATED, PLEASE CONTACT THE MICROBIOLOGY LABORATORY ([phone]) WITHIN 3 DAYS OF THIS REPORT. Unless otherwise specified, testing performed by [facility] [address] [place] [id number] 9 This sample is drawn by:ADRI[facility]. 10 Updated reference range on new analyzer 11 Updated reference range on new analyzer 12 Concerning GFR Guidelines: Normal function or mild renal disease, if clinically at risk: >/= 60 mL/min Moderately decreased: 30-59 Severely decreased: 15-29 Renal failure: <15 Glomerular Filtration Rate (GFR) is estimated based on the MDRD equation, which assumes a steady state for creatinine as recommended by the National Kidney Disease Education Program in conjunction with the National Institutes of Health and the National Kidney Foundation. Clinical conditions in which it may be necessary to measure GFR by using clearance methods include extremes of age and body size, severe malnutrition or obesity, diseases of skeletal muscle, paraplegia or quadriplegia, vegetarian diet, rapidly changing kidney function, and calculation of the dose of potentially toxic drugs that are excreted by the kidneys. 13 Concerning GFR Guidelines for Americans: Normal function or mild renal disease, if clinically at risk: >/= 60 mL/min Moderately decreased: 30-59 Severely decreased: 15-29 Renal failure: <15 14 Updated Reference Range 15 Per NCEP ATP III Guidelines: Results lower than 40 mg/dL are suggestive of increased risk for coronary artery disease. Results > or = to 60 mg/dL are considered a negative risk factor. 16 Per NCEP ATP III Guidelines: Normal Population <130 Patients with medical conditions: CHD/DM Optimal: <100 Borderline high: 130-159 High: 160-189 Very high: >189 17 Clinical Guidelines for recommended serum 25(OH)Vitamin D Deficient at less than 20 ng/mL Insufficient at 20 to <30 ng/mL Sufficient at 30-100 ng/mL Toxicity at greater than 100 ng/mL Procedures Date Code Description Status 08/08/2018 23249 Admin Of Inj (Therapeutic Phrophylactic Or Diagnostic Completed Subq Inj 02/10/2018 [id number] Mammogram Completed 09/10/2016 [id number] Mammogram Completed 03/13/2016 [id number] Mammogram Completed 08/22/2015 [id number] Mammogram Completed 01/24/2015 [id number] Mammogram Completed 01/04/2014 [id number] Mammogram Completed 12/30/2013 [id number] Mammogram Completed 03/23/2013 [id number] Bone Mineral Density Test Completed 12/29/2012 [id number] Mammogram Completed 12/31/2011 [id number] Mammogram Completed 12/28/2010 [id number] Mammogram Completed 10/03/2010 [id number] Bone Mineral Density Test Completed 12/26/2009 [id number] Mammogram Completed 08/16/2009 [id number] Bone Mineral Density Test Completed 10/19/2008 [id number] Mammogram Completed Medical Devices Description No Information Available Encounters Type Date Location Provider Dx Diagnosis Office Visit 12/22/2018 Yusra Quick I10 Essential (primary) 2:45p MD Yung hypertension R19.7 Diarrhea, unspecified N39.0 Urinary tract infection, site not specified M46.1 Sacroiliitis, not elsewhere classified M54.5 Low back pain G60.9 Hereditary and idiopathic neuropathy, unspecified 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7 Diarrhea, unspecified Z68.29 Body mass index (BMI) 29.0-29.9, adult Office Visit 09/04/2018 11:40a Gagan Reese PA R19.7 Diarrhea, unspecified Z68.28 Body mass index (BMI) 28.0-28.9, adult Office Visit 08/01/2018 9:30a Yusra Quick C50.411 Zeny drummondplFuentes MD upper-outer quadrant 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reast C54.9 Malignant neoplasm of corpus uteri, unspecified 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 M46.1 Sacroiliitis, not elsewhere classified E55.9 Vitamin D deficiency, unspecified K22.70 Kerns's esophagus without dysplasia E78.2 Mixed hyperlipidemia G60.9 Hereditary and idiopathic neuropathy, unspecified M54.5 Low back pain I10 Essential (primary) hypertension M81.0 Age-related osteoporosis w/o current pathological fracture G89.4 Chronic pain syndrome R14.3 Flatulence R06.2 Wheezing Z68.29 Body mass index (BMI) 29.0-29.9, adult Assessments Date Code Description Provider 01/19/2019 M46.1 Sacroiliitis, not elsewhere classified Yusra De Leon MD 01/19/2019 G60.9 Hereditary and idiopathic neuropathy, Yusra De Leon MD unspecified 01/19/2019 M54.5 Low back pain Yusra De Leon MD 01/19/2019 R11.0 Nausea Yusra De Leon MD 01/19/2019 I10 Essential (primary) hypertension Yusra De Leon MD 01/19/2019 Z68.26 Body mass index (BMI) 26.0-26.9, adult Yusra De Leon MD 12/23/2018 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 [facility] 12/23/2018 N39.0 Urinary tract infection, site not specified [facility] 12/22/2018 I10 Essential (primary) hypertension Yusra De Leon MD 12/22/2018 R19.7 Diarrhea, unspecified Yusra De Leon MD 12/22/2018 N39.0 Urinary tract infection, site not specified Yusra De Leon MD 12/22/2018 M46.1 Sacroiliitis, not elsewhere classified Yusra De Leon MD 12/22/2018 M54.5 Low back pain Yusra De Leon MD 12/22/2018 G60.9 Hereditary and idiopathic neuropathy, Yusra De Leon MD unspecified 12/22/2018 Z79.891 assisted (current) use of opiate analgesic Yusra De Leon MD 12/22/2018 R11.0 Nausea Yusra De Leon MD 12/22/2018 Z68.26 Body mass index (BMI) 26.0-26.9, adult Yusra De Leon MD 12/12/2018 N39.0 Urinary tract infection, site not specified Gagan Valdes PA 12/12/2018 R19.7 Diarrhea, unspecified Gagan Valdes PA 12/12/2018 Z68.25 Body mass index (BMI) 25.0-25.9, adult Gagan Valdes PA 12/08/2018 N39.0 Urinary tract infection, site not specified Gagan Valdes PA 12/08/2018 R19.7 Diarrhea, unspecified Gagan Valdes PA 12/08/2018 Z68.26 Body mass index (BMI) 26.0-26.9, adult Gagan Valdes PA 12/08/2018 R31.9 Hematuria, unspecified [facility] 12/08/2018 Z68.26 Body mass index (BMI) 26.0-26.9, adult [facility] 09/26/2018 R19.7 Diarrhea, unspecified Yusra De Leon MD 09/26/2018 R63.4 Abnormal weight loss Yusra De Leon MD 09/26/2018 Z68.28 Body mass index (BMI) 28.0-28.9, adult Yusra De Leon MD 09/17/2018 R19.7 Diarrhea, unspecified Gagan Valdes PA 09/17/2018 Z68.29 Body mass index (BMI) 29.0-29.9, adult Gagan Valdes PA 09/04/2018 R19.7 Diarrhea, unspecified Gagan Valdes PA 09/04/2018 Z68.28 Body mass index (BMI) 28.0-28.9, adult Gagan Valdes PA 09/01/2018 J15.9 Unspecified bacterial pneumonia Yusra De Leon MD 09/01/2018 M54.2 Cervicalgia Yusra De Leon MD 09/01/2018 R19.7 Diarrhea, unspecified Yusra De Leon MD 09/01/2018 Z68.28 Body mass index (BMI) 28.0-28.9, adult Yusra De Leon MD 08/08/2018 M81.0 Age-related osteoporosis without current Yusra De Leon MD pathological fracture 08/08/2018 M81.0 Age-related osteoporosis without current Nurses Schedule [facility] pathological fractu 08/01/2018 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 Leon MD 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 08/01/2018 E55.9 Vitamin D deficiency, unspecified [facility] 08/01/2018 C54.9 Malignant neoplasm of corpus uteri, Yusra De Leon MD unspecified 08/01/2018 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 De Leon MD agent 08/01/2018 M46.1 Sacroiliitis, not elsewhere classified Yusra De Leon MD 08/01/2018 E55.9 Vitamin D deficiency, unspecified Yusra De Leon MD 08/01/2018 K22.70 Kerns's esophagus without dysplasia Yusra De Leon MD 08/01/2018 E78.2 Mixed hyperlipidemia Yusra De Leon MD 08/01/2018 G60.9 Hereditary and idiopathic neuropathy, Yusra De Leon MD unspecified 08/01/2018 M54.5 Low back pain Yusra De Leon MD 08/01/2018 I10 Essential (primary) hypertension Yusra De Leon MD 08/01/2018 M81.0 Age-related osteoporosis without current Yusra De Leon MD pathological fractu 08/01/2018 G89.4 Chronic pain syndrome Yusra De Leon MD 08/01/2018 R14.3 Flatulence Yusra De Leon MD 08/01/2018 R06.2 Wheezing Yusra De Leon MD 08/01/2018 Z68.29 Body mass index (BMI) 29.0-29.9, adult Yusra De Leon MD 08/01/2018 E78.2 Mixed hyperlipidemia [facility] Plan of Treatment Future Appointment(s):01/20/2019 9:00 am - Nurses Schedule Kimi at [id number]/2018 10:30 am - Yusra De Leon MD at [id number]/19/2019 - Yusra De Leon,MDM46.1 Sacroiliitis, not elsewhere classifiedNew Labs:[id number], Ordered: Basic (BMP), Ordered: 01/19/19Follow up:BW w/in 1 yrG60.9 Hereditary and idiopathic neuropathy, vaunfugjgxxN68.5 Low back painR11.0 [id number] Essential ( primary) askopyeympbzE63.26 Body mass index (BMI) 26.0-26.9, adult Functional Status Description No Information Available Mental Status Description No Information Available Referrals Refer to Reason for Referral Status Appt Date Korina Balderrama MD EMILY diarrhea [id number] [pt to make appt Closed but needs in ~2weeks] [address] [place] [address] [phone]
[2019-01-29 09:59] LABS: ABS Lymphocytes 0.5 10^3/ul (1.0-4.8); ABS Monocytes 0.6 10^3/ul (0-0.8); ABS Neutrophils 5.9 10^3/ul (1.5-7.7); Eosinophil % 0.3 %; Hematocrit 39 % (35-47); Hemoglobin 13.3 g/dL (12.0-16.0); Lymphocyte % 6.8 %; Mean Corpuscular HGB Conc 34 g/dL (31-36); Mean Corpuscular Hemoglobin 33 pg (27-31); Mean Corpuscular Volume 97 fL (80-97); Mean Platelet Volume 7.3 fL (7.4-10.4); Platelet Count 206 10^3/uL (150-450); Red Blood Count 4.08 10^6 /uL (3.70-4.87); Red Cell Distribution Width 15 % (10-15)
[2019-01-29 10:06] LABS: INR 1.04 (0.82-1.09)
--- NOTE | 2019-01-29 10:29 | ED ---
Complex/Multi-Sys Presentation - HPI Summary HPI Summary: Patient is a 78 y/o F presenting to [facility] via EMS with complaints of abdominal pain, back pain, diarrhea, and chest pain. She additionally reports that she has difficulty finding a comfortable position to sit. Patient characterizes chest pain as a heaviness, which she has had for the past couple of weeks. Patient claims this is due to recent lack of sleep and PO intake. Abdominal pain has been constant as well. This morning, 01/29/19, patient states that she felt like "crap". Patient notes that she was evaluated in July,, for neck pain and SOB. Patient was found to have PNA and strep throat and was admitted to [facility] [place]. Patient reports she was placed on two different antibiotics and developed cdiff as a result. She also reports that she had been admitted during the summer of 2018 for an episode of dehydration. Patient reports that she has episodes of diarrhea "on and off" around 3-4 times a week. She notes that she is on imodium. Patient is followed by Dr. Balderrama. Hx of HLD, HTN, UTI, and radiation cystitis, no diabetes noted. Patient does not report fever, chills, erythema of eyes, sore throat, SOB, cough, N/V, dysuria, hematuria, myalgia, edema, rash and dizziness. On triage, pain is rated 8/10, nothing is noted to aggravate/alleviate Sx. Home medications and allergies are reviewed. - History Of Current Complaint Time Seen by Provider: 01/29/19 09:48 Hx Obtained From: Patient Onset/Duration: Lasting Hours - feel like "crap", Lasting Weeks - chest pain, Still Present Timing: Hours - feel like "crap", Weeks - chest pain Severity Currently: Severe Location: Pain At: - chest, back, abdomen Aggravating Factor(s): nothing Alleviating Factor(s): nothing Associated Signs And Symptoms: Positive: Chest Pain, Diarrhea, Abdominal Pain, Back Pain, Other - positive - feeling like "crap", lack of sleep and PO intake; negative - fever, chills, erythema of eyes, sore throat, cough, abdominal pain, N/V, dysuria, hematuria, myalgia, edema, and rash. Negative: Dizziness, SOB, Cough, Edema, Nausea, Vomiting, Dysuria, Fever - Allergies/Home Medications Allergies/Adverse Reactions: Allergies Allergy/AdvReac Type Severity Reaction Status Date / Time shellfish derived Allergy GI Upset Verified 01/29/19 09:56 Sulfa (Sulfonamide Allergy Unknown Verified 01/29/19 09:56 Antibiotics) Reaction Details chocolate flavor AdvReac Nausea Verified 01/29/19 09:56 Home Medications: Home Medications Calcium Carbonate/Vitamin D3 [Calcium 600 + Vit D Tablet] 1 each PO DAILY [History Confirmed 01/29/19] Diclofenac Sodium 1 gm TOPICAL QID PRN 01/29/19 [History Confirmed 01/29/19] Ibuprofen TAB* [Motrin TAB* 600 MG] 600 mg PO Q8H PRN 01/29/19 [History Confirmed 01/29/19] Mirabegron (NF) [Myrbetriq (NF)] 50 mg PO DAILY 01/29/19 [History Confirmed 10/12] Ondansetron ODT TAB* [Zofran 4 MG Odt TAB*] 4 mg PO Q8HR PRN 01/29/19 [History Confirmed 01/29/19] PMH/Surg Hx/FS Hx/Imm Hx Endocrine/Hematology History: Reports: Hx Anemia Denies: Hx Diabetes Cardiovascular History: Reports: Hx Congestive Heart Failure - R/T CHEMOTHERAPY HEART FUNCTION, NO PROBLEMS NOW, Hx Hypertension - ON MEDS, CONTROLLED Denies: Hx Pacemaker/ICD Respiratory History: Denies: Hx Asthma, Hx Chronic Obstructive Pulmonary Disease (COPD) GI History: Reports: Hx Gall Bladder Disease - GALL BLADDER REMOVED, Hx Gastroesophageal Reflux Disease - 1990s:SURGERY, NO Sx SINCE, Hx Hiatal Hernia, Other GI Disorders - FIELDS'S ESOPHAGUS History: Reports: Other Problems/Disorders - RADIATION CYSTITIS R/T UTERINE CANCER Denies: Hx Renal Disease Musculoskeletal History: Reports: Hx Arthritis - OSTEO, Hx Back Problems, Hx Orthopedic Injury, Hx Osteoporosis Sensory History: Reports: Hx Cataracts, Hx Contacts or Glasses, Hx Hearing Problem Denies: Hx Hearing Aid Opthamlomology History: Reports: Hx Cataracts, Hx Contacts or Glasses Neurological History: Reports: Hx Headaches, Hx Nerve Disease - 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 2006 RT KNEE REPLACEMENT [place]. 3 OTHER KNEE SURGERYS BEFORE REPLACEMENT. HOLDER NEUROMA SURGERIES RT AND LT FOOT, HEMORROIDECTOMY [facility] [place]. 2011 UTERINE CA WITH HYSTERECTOMY, [place]. 2005 GALLBLADDER [facility] [place]. 2005 ESPHOGUS REPAIR [facility] [place]. 2014 RIGHT BREAST LUMPECTOMY. JUN 2015 LEFT KNEE REPLACEMENT Hx Anesthesia Reactions: Yes - N/V Infectious Disease History: Yes Infectious Disease History: Denies: Traveled Outside the [place] in Last 30 Days - Family History Known Family History: Positive: Other - positive: glaucoma - Social History Alcohol Use: Occasionally Alcohol Amount: 5 drinks Hx Substance Use: No Substance Use Type: Reports: None Hx Tobacco Use: No Smoking Status (MU): Never Smoked Tobacco Have You Smoked in the Last Year: No Review of Systems Constitutional: Other - positive - feeling like "crap", lack of sleep Negative: Fever, Chills Negative: Erythema Negative: Sore Throat Positive: Chest Pain Negative: Shortness Of Breath, Cough Gastrointestinal: Other - positive - decreased PO intake Positive: Abdominal Pain, Diarrhea Negative: dysuria, hematuria Positive: Myalgia - back pain . Negative: Edema Negative: Rash Neurological: Other - negative - dizziness All Other Systems Reviewed And Are Negative: Yes Physical Exam - Summary Physical Exam Summary: Constitutional: Well-developed, Well-nourished, Alert. (-) Distressed Skin: Warm, Dry HENT: Normocephalic; Atraumatic Eyes: Conjunctiva normal Neck: Musculoskeletal ROM normal neck. (-) JVD, (-) Stridor, (-) Tracheal deviation Cardio: Rhythm regular, rate normal, Heart sounds normal; Intact distal pulses; The pedal pulses are 2+ and symmetric. Radial pulses are 2+ and symmetric. (-) Murmur Pulmonary/Chest wall: Effort normal. (-) Respiratory distress, (-) Wheezes, (-) Rales Abd: Soft, (-) tenderness, (-) Distension, (-) Guarding, (-) Rebound Musculoskeletal: (-) Edema Lymph: (-) Cervical adenopathy Neuro: Alert, Oriented x3 Psych: Mood and affect Normal Triage Information Reviewed: Yes Vital Signs On Initial Exam: Initial Vitals Temp Pulse Resp BP Pulse Ox 98.0 F 91 16 147/89 96 01/29/19 09:49 01/29/19 09:49 01/29/19 09:49 01/29/19 09:49 01/29/19 09:49 Vital Signs Reviewed: Yes Diagnostics - Vital Signs Vital Signs Temp Pulse Resp BP Pulse Ox 01/29/19 09:49 98.0 F 91 16 147/89 96 - Laboratory Lab Results: Lab Results 01/29/19 01/29/19 Range/Units 09:50 09:50 WBC 7.0 (3.5-10.8) 10^3/uL RBC 4.08 (3.70-4.87) 10^6 /uL Hgb 13.3 (12.0-16.0) g/dL Hct 39 (35-47) % MCV 97 (80-97) fL MCH 33 H (27-31) pg MCHC 34 (31-36) g/dL RDW 15 (10-15) % Plt Count 206 (150-450) 10^3/uL MPV 7.3 L (7.4-10.4) fL Neut % (Auto) 84.2 % Lymph % (Auto) 6.8 % [place] % (Auto) 8.5 % Eos % (Auto) 0.3 % Baso % (Auto) 0.2 % Absolute Neuts (auto) 5.9 (1.5-7.7) 10^3/ul Absolute Lymphs (auto) 0.5 L (1.0-4.8) 10^3/ul Absolute Monos (auto) 0.6 (0-0.8) 10^3/ul Absolute Eos (auto) 0.0 (0-0.6) 10^3/ul Absolute Basos (auto) 0.0 (0-0.2) 10^3/ul Absolute Nucleated RBC 0.0 10^3/ul Nucleated RBC % 0.0 INR (Anticoag Therapy) 1.04 (0.82-1.09) Result Diagrams: 01/29/19 09:50 01/29/19 09:50 Lab Statement: Any lab studies that have been ordered have been reviewed, and results considered in the medical decision making process. - Radiology CXR Radiology Interpretation Completed By: Radiologist Summary of Radiographic Findings: CXR IMPRESSION: 1. No new focal airspace opacification. 2. Unchanged elevation of left hemidiaphragm. THIS REPORT WAS REVIEWED BY DR. PAEZ. - CT CT ABDOMEN/PELVIS/CHEST CT Interpretation Completed By: Radiologist Summary of CT Findings: CT CHEST IMPRESSION: #. No acute intrathoracic process evident. CT ABDOMEN PELVIS IMPRESSION: #. No acute abdominal pelvic pathologic process evident. #. Moderately severe diverticulosis of the colon without findings of acute diverticulitis. THIS REPORT WAS REVIEWED BY DR. PAEZ. - EKG 0959 Cardiac Rate: NL - rate of 93 BPM EKG Rhythm: Sinus Rhythm Summary of EKG Findings: EKG showed NSR with rate of 93 BPM, no STEMI. This EKG was reviewed and interpreted by Dr. Paez. Re-Evaluation - Re-Evaluation First Eval Re-Evaluation Time: 18:33 Change: Improved Comment: Patient reports improvement in Sx. No chest pain or abdominal pain at this time. Patient had no abdominal tenderness on exam. She is tolerating PO. She is comfortable with discharge to home. Complex Multi-Symp Course/Dx Course Of Treatment: Patient is a 78 y/o F presenting to [facility] via EMS with complaints of abdominal pain, back pain, diarrhea, and chest pain. She additionally reports that she has difficulty finding a comfortable position to sit. Patient characterizes chest pain as a heaviness, which she has had for the past couple of weeks. Patient claims this is due to recent lack of sleep and PO intake. Abdominal pain has been constant as well. This morning, 01/29/19, patient states that she felt like "crap". Bloodwork was obtained. Labs showed MCH 33, MPV 7.3, absolute lymphs 0.5, total protein 5.8. EKG showed NSR with rate of 93 BPM, no STEMI. CXR IMPRESSION: 1. No new focal airspace opacification. 2. Unchanged elevation of left hemidiaphragm. CT CHEST IMPRESSION: #. No acute intrathoracic process evident. CT ABDOMEN PELVIS IMPRESSION: #. No acute abdominal pelvic pathologic process evident. #. Moderately severe diverticulosis of the colon without findings of acute diverticulitis. First, second, and third trops were negative. 1833 - Patient reports improvement in Sx. No chest pain or abdominal pain at this time. Patient had no abdominal tenderness on exam. She is tolerating PO. She is comfortable with discharge to home. - Diagnoses Provider Diagnoses: Chronic abdominal pain, Chronic diarrhea, Chest pain, unspecified Discharge ED - Sign-Out/Discharge Documenting (check all that apply): Patient Departure - discharge Patient Received Moderate/Deep Sedation with Procedure: No - Discharge Plan Condition: Stable Disposition: HOME Patient Education Materials: Chest Pain (ED), Chronic Diarrhea (ED), Chronic Abdominal Pain (ED) Referrals: Yusra Stringer MD [Primary Care Provider] - 4 Days Koirna Balderrama MD [Medical Doctor] - 3 Days Additional Instructions: RETURN TO THE EMERGENCY DEPARTMENT FOR CHANGING OR WORSENING SYMPTOMS. FOLLOW UP WITH YOUR PRIMARY CARE PHYSICIAN WITHIN FOUR DAYS AND WITH [employer] WITHIN FOUR DAYS. - Attestation Statements Document Initiated by Scribe: Yes Documenting Scribe: JAKUB ARDON Provider For Whom Bandar[employer] is Documenting (Include Credential): RASHAD PAEZ MD Scribe Attestation: JAKUB Conti, scribed for RASHAD PAEZ MD on 01/29/19 at 1843. Status of Scribe Document: Ready
[2019-01-29 11:16] LABS: Albumin 3.8 g/dL (3.2-5.2); Calcium 8.9 mg/dL (8.6-10.3); Potassium 3.5 mmol/L (3.5-5.0); Total Bilirubin 0.3 mg/dL (0.2-1.0)
[2019-01-29 11:22] LABS: Albumin/Globulin Ratio 1.9 (1-3); BUN/Creatinine Ratio 17.4 (8-20); EGFR African American 99.8 (>60); EGFR Non-African American 82.5 (>60); Total Protein 5.8 g/dL (6.4-8.9)
[2019-01-29 11:43] LABS: Troponin I 0.01 ng/mL (<0.04)
[2019-01-29] MEDS: Iohexol 300* (CONTRAST) 10 ML SDV IV ONE (13:23)
[2019-01-29 18:55] VITALS: BP 116/68
== END 2019-01-29 18:54 | disposition home or self-care (01) ==
LOC: ED 09:40
DX: R07.9 Chest pain, unspecified (principal); R10.9 Unspecified abdominal pain; K52.9 Noninfective gastroenteritis and colitis, unspecified; K57.30 Diverticulosis of large intestine without perforation or abscess without bleeding; D64.9 Anemia, unspecified; I11.0 Hypertensive heart disease with heart failure; I50.9 Heart failure, unspecified; K21.9 Gastro-esophageal reflux disease without esophagitis; Z79.899 Other long term (current) drug therapy; Z88.2 Allergy status to sulfonamides
CPT/HCPCS: 36415; 71045; 71260; 74177; 80053; 84484; 85025; 85610; 93005; 99284; Q9967